=== PATIENT | male | born 1950 | race Caucasian/White ===

== ENCOUNTER → 2018-01-27 | Outpatient (CLI) | payer MEDICARE, OTHER ==
[~2018-01-27] MED LIST: ACET250T19 PO; ASPI-1471 PO; CIPR-212 PO; FAM20 PO; IBU200 PO; IBU800 PO; LEVO137T23 PO; LEVO150T72 PO; LOR5/325 PO; MULT-1335 PO; NAPR-1043 PO
[2018-01-27 08:02] LABS: PLATELET COUNT, AUTOMATED 163 K/uL (150-450)
[2018-01-27 08:45] LABS: LDL CHOLESTEROL 118 mg/dl
== END ==
LOC: LAB 07:44
PROVIDERS: ATTEND Internal Medicine
DX: E03.9 Hypothyroidism, unspecified (principal)
CPT/HCPCS: 36415; 81001; 84439; 84443; 85025; G0103; 82040; 82247; 82310; 82374; 82435; 82465; 82565; 82947; 83718; 84075; 84132; 84153; 84155; 84295; 84450; 84460; 84478; 84520

== ENCOUNTER → 2018-01-28 | Outpatient (CLI) | payer MEDICARE, OTHER ==
--- NOTE | 2018-01-28 08:29 | RADIOLOGY IMAGING REPORT ---
FACILITY: [facility] [place] PATIENT NAME: Zhou Sosa : 1950 MR: [id number] V: [id number] EXAM DATE: ORDERING PHYSICIAN: MARK ZHOU TECHNOLOGIST: Location: [facility] Patient: Zhou Sosa : 1950 Visit/Account:[id number] Date of Sevice: 01/28/2018 EXAMINATION: Aorta ultrasound with duplex Doppler evaluation HISTORY: Abdominal aortic aneurysm, iliac artery aneurysm COMPARISON: December 07, 2007 FINDINGS: Suprarenal abdominal aorta: 2.2 x 1.9 cm AP and transverse dimensions Superior infrarenal abdominal aorta: 2.4 x 1.8 cm AP and transverse dimensions Mid infrarenal abdominal aorta: 1.8 x 2.5 cm AP and transverse dimensions Inferior infrarenal abdominal aorta: Two x 1.9 cm AP and transverse dimensions Proximal common iliac artery diameter: Left 12 x 20 mm; right 16 x 22 mm Aorta wall: Negative. Aorta and proximal common iliac artery are patent by duplex Doppler ultrasound. Incidentally noted are three left renal cysts largest measuring 9.8 cm in diameter. Also incidentally noted are two round nonshadowing echogenic foci within the gallbladder best seen on image 12 of 47. The largest measures 4 mm in diameter. 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 The right common iliac artery measures 16 x 22 mm Multiple left renal cysts 2. Round nonshadowing echogenic foci are seen within the gallbladder which may represent polyps versus nonshadowing stones Report Dictated By: Melanie Guzman MD at 01/28/2018 8:16 AM Report E-Signed By: Melanie Guzman MD at 01/28/2018 8:25 AM WSN:[email or web address]
== END ==
LOC: US 01:55
PROVIDERS: ATTEND Internal Medicine
DX: I72.3 Aneurysm of iliac artery (principal); N28.1 Cyst of kidney, acquired
CPT/HCPCS: 93978

== ENCOUNTER → 2018-05-05 | Outpatient (CLI) | payer MEDICARE, OTHER | LOC: LAB 08:40 | PROVIDERS: ATTEND Internal Medicine | DX: E03.9 Hypothyroidism, unspecified (principal); Z85.850 Personal history of malignant neoplasm of thyroid | CPT/HCPCS: 36415; 84439; 84443 ==

== ENCOUNTER → 2018-05-29 | Outpatient (CLI) | payer MEDICARE, OTHER ==
--- NOTE | 2018-05-29 14:36 | RADIOLOGY IMAGING REPORT ---
FACILITY: [facility] PATIENT NAME: Zhou Sosa : 1950 MR: [id number] V: [id number] EXAM DATE: ORDERING PHYSICIAN: BRINA BARTLETT TECHNOLOGIST: Location: [facility] [place] Patient: Zhou Sosa : 1950 Visit/Account:[id number] Date of Sevice: 05/29/2018 GALLBLADDER HISTORY: Gallbladder polyp seen on prior ultrasound COMPARISON: Aortic ultrasound January 28, 2018 FINDINGS: Gallbladder: There are multiple nonshadowing echogenic foci adherent to the gallbladder wall consiste nt with polyps. The largest measures 5 mm in diameter. Liver: There is a 2.6 cm cyst in the right lobe and a 2 cm cyst in the left lobe the liver contour is slightly lobulated Common duct: Normal, 3.3 mm diameter. Pancreas: Partially obscured by bowel, visualized aspects unremarkable. Right kidney: There are two right renal cysts one measuring 1 cm in diameter one measuring 9 mm in di ameter Upper abdominal aorta and IVC: Patent. Ascites: None visualized. IMPRESSION: Multiple gallbladder polyps, largest measuring 5 mm. There are two hepatic cysts, largest 2.6 cm Two right renal cysts, largest 1 cm Report Dictated By: Melanie Guzman MD at 05/29/2018 2:22 PM Report E-Signed By: Melanie Guzman MD at 05/29/2018 2:32 PM WSN:[email or web address]
== END ==
LOC: US 03:26
PROVIDERS: ATTEND Surgery
DX: K82.4 Cholesterolosis of gallbladder (principal); K76.89 Other specified diseases of liver; N28.1 Cyst of kidney, acquired
CPT/HCPCS: 76705

== ENCOUNTER → 2018-12-23 | Outpatient (CLI) | payer MEDICARE, OTHER ==
--- NOTE | 2018-12-23 11:08 | RADIOLOGY IMAGING REPORT ---
FACILITY: [facility] PATIENT NAME: Zhou Sosa : 1950 MR: [id number] V: [id number] EXAM DATE: ORDERING PHYSICIAN: BRINA BARTLETT TECHNOLOGIST: Location: [facility] Patient: Zhou Sosa : 1950 Visit/Account:[id number] Date of Sevice: 12/23/2018 GALLBLADDER HISTORY: gallbladder polyps COMPARISON: May 29, 2018 FINDINGS: Gallbladder: There are multiple nonmobile echogenic foci adherent to the gallbladder wall. At least four polyps are identified the largest measuring 8.7 mm. Liver: There multiple hepatic cysts ranging in size up to 2.1 cm. Also noted is a well-circumscribed 1.3 cm echogenic mass along the dome of the liver which was not imaged previously Common duct: Normal, 2.3 mm diameter. Pancreas: Partially obscured by bowel, visualized aspects unremarkable. Right kidney: The right kidney measures 10.1 cm in length with no evidence of hydronephrosis Upper abdominal aorta and IVC: Patent. Ascites: None visualized. IMPRESSION: There multiple gallbladder polyps measuring up to 8.7 mm in diameter Multiple hepatic cysts Well-circumscribed 1.3 cm echogenic mass along the dome of the liver which was not imaged on the prio r study. This may represent hemangioma although other solid masses are included in the differential diagnosis. If further diagnostic imaging is desired either CT or MR of the liver with and without co ntrast utilizing the pancreatic mass protocol would be helpful Report Dictated By: Melanie Guzman MD at 12/23/2018 10:38 AM Report E-Signed By: Melanie Guzman MD at 12/23/2018 11:03 AM WSN:[email or web address]
== END ==
LOC: US 01:32
PROVIDERS: ATTEND Surgery
DX: K82.4 Cholesterolosis of gallbladder (principal); K76.89 Other specified diseases of liver
CPT/HCPCS: 76705

== ENCOUNTER → 2019-01-07 | Outpatient (CLI) | payer MEDICARE, OTHER ==
[~2019-01-07] MED LIST changes: +IOPAMIDOL 76% 100 ML INFUS BTL 100 ML ONE
--- NOTE | 2019-01-07 11:08 | RADIOLOGY IMAGING REPORT ---
FACILITY: PATIENT NAME: Zhou Sosa : 1950 MR: [id number] V: [id number] EXAM DATE: ORDERING PHYSICIAN: BRINA BARTLETT TECHNOLOGIST: Location: [facility] [place] Patient: Zhou Sosa : 1950 Visit/Account:[id number] Date of Sevice: 01/07/[address] of abdomen with contrast CLINICAL INFORMATION: Liver lesion TECHNIQUE: Axial CT images were obtained through the abdomen following nonionic iodinated intraveno us contrast. Imaging was performed in the arterial phase, portal venous phase and delayed phase. Re formatted coronal and sagittal images were also obtained. Dose Lowering Technique One of the following dose optimization techniques was utilized in the performance of this exam: Autom ated exposure control; adjustment of the mA and/or kV according to the patient's size; or use of an i terative reconstruction technique. Specific details can be referenced in the facility's radiology C T exam operational policy. CONTRAST: 75ml of IV Isovue-370 contrast. COMPARISON: Gallbladder ultrasound December 23, 2018. FINDINGS: Lower lung porter: Limited views lower lung field are unremarkable. Liver: Numerous hepatic cysts are present ranging in size up to 2.4 cm in diameter. In the lateral s egment of the left lobe of the liver there is a 1.4 x 1.2 cm arterially enhancing mass which becomes homogeneous on the portal venous phase images and follows blood pool on the delayed images. This may represent a hemangioma Biliary: Gallbladder appears unremarkable as well as the intra and extra hepatic biliary system. Pancreas: Normal appearance. Spleen: Normal appearance. Adrenal glands: Unremarkable. Kidneys / retroperitoneum: There bilateral renal cysts. The largest on the left measures 10.7 cm in diameter Bowel / peritoneum / mesenteries: The visualized small and large bowel appear unremarkable. Vessels: Mild atherosclerotic calcification seen throughout a nonaneurysmal abdominal aorta. There a ppears be mild aneurysmal dilatation of the right common iliac artery which is incompletely imaged an d measures 1.7 cm in diameter Musculoskeletal / Body wall: No acute or aggressive osseous abnormality. Lymph node assessment: No pathologic adenopathy identified. There is a small umbilical hernia containing fat IMPRESSION: 1. Numerous hepatic cysts In the lateral segment of the left lobe of the liver there is a 1.4 x 1.2 cm arterially enhancing mas s which becomes homogeneous on the portal venous phase images and follows blood pool on the delayed i mages. This may represent a benign hemangioma. A six-month follow-up liver ultrasound is recommende d 2. 3. Report Dictated By: Melanie Guzman MD at 01/07/2019 10:08 AM Report E-Signed By: Melanie Guzman MD at 01/07/2019 11:01 AM WSN:[email or web address]
--- NOTE | 2019-01-07 12:20 | RADIOLOGY IMAGING REPORT ---
FACILITY: [facility] PATIENT NAME: Zhou Sosa : 1950 MR: [id number] V: [id number] EXAM DATE: ORDERING PHYSICIAN: BRINA BARTLETT TECHNOLOGIST: Location: [facility] Patient: Zhou Sosa : 1950 Visit/Account:[id number] Date of Sevice: 01/07/[address] of abdomen with contrast CLINICAL INFORMATION: Liver lesion TECHNIQUE: Axial CT images were obtained through the abdomen following nonionic iodinated intraveno us contrast. Imaging was performed in the arterial phase, portal venous phase and delayed phase. Re formatted coronal and sagittal images were also obtained. Dose Lowering Technique One of the following dose optimization techniques was utilized in the performance of this exam: Autom ated exposure control; adjustment of the mA and/or kV according to the patient's size; or use of an i terative reconstruction technique. Specific details can be referenced in the facility's radiology C T exam operational policy. CONTRAST: 75ml of IV Isovue-370 contrast. COMPARISON: Gallbladder ultrasound December 23, 2018. FINDINGS: Lower lung porter: Limited views lower lung field are unremarkable. Liver: Numerous hepatic cysts are present ranging in size up to 2.4 cm in diameter. In the lateral s egment of the left lobe of the liver there is a 1.4 x 1.2 cm arterially enhancing mass which becomes homogeneous on the portal venous phase images and follows blood pool on the delayed images. This may represent a hemangioma Biliary: Gallbladder appears unremarkable as well as the intra and extra hepatic biliary system. Pancreas: Normal appearance. Spleen: Normal appearance. Adrenal glands: Unremarkable. Kidneys / retroperitoneum: There bilateral renal cysts. The largest on the left measures 10.7 cm in diameter Bowel / peritoneum / mesenteries: The visualized small and large bowel appear unremarkable. Vessels: Mild atherosclerotic calcification seen throughout a nonaneurysmal abdominal aorta. There a ppears be mild aneurysmal dilatation of the right common iliac artery which is incompletely imaged an d measures 1.7 cm in diameter Musculoskeletal / Body wall: No acute or aggressive osseous abnormality. Lymph node assessment: No pathologic adenopathy identified. There is a small umbilical hernia containing fat IMPRESSION: 1. Numerous hepatic cysts In the lateral segment of the left lobe of the liver there is a 1.4 x 1.2 cm arterially enhancing mas s which becomes homogeneous on the portal venous phase images and follows blood pool on the delayed i mages. This may represent a benign hemangioma. A six-month follow-up liver ultrasound is recommende d 2. 3. Report Dictated By: Melanie Guzman MD at 01/07/2019 10:08 AM Report E-Signed By: Melanie Guzman MD at 01/07/2019 11:01 AM WSN:[email or web address]
== END ==
LOC: CT 00:30
PROVIDERS: ATTEND Surgery
DX: Z01.812 Encounter for preprocedural laboratory examination (principal); K76.89 Other specified diseases of liver
CPT/HCPCS: 36415; 74170; 82565; Q9967

== ENCOUNTER 2019-02-04 01:29 | Day surgery (SDC) | payer MEDICARE, OTHER ==
[2019-02-04] VITALS (9 sets, daily range): BP systolic 122–150; BP diastolic 69–90
[~2019-02-04] VITALS: Ht 177.8 cm; Wt 76.7 kg
[~2019-02-04 01:29] MED LIST changes: -IOPAMIDOL 76% 100 ML INFUS BTL 100 ML ONE
[2019-02-04] MEDS ORDERED: ROPIVACAINE 0.5% 20 ML VIAL ONE (08:03)
[2019-02-04] MEDS ORDERED: SUGAMMADEX SOD 200 MG/2 ML SDV ONE (08:09)
[2019-02-04] MEDS ORDERED: ROCURONIUM BR 10 MG/ML 5 ML SY 5 ML ONE ×2 (08:09→10:38)
[2019-02-04] MEDS ORDERED: fentaNYL CITR 250 MCG/5 ML AMP ONE (08:09)
[2019-02-04] MEDS ORDERED: PROPOFOL EMUL(*) 10MG/ML 20 ML 20 ML ONE (08:09)
[2019-02-04] MEDS ORDERED: DEXAMETHASONE SOD 4 MG/ML VIAL ONE (08:09)
[2019-02-04] MEDS ORDERED: LIDOCAINE MPF 1% 5 ML VIAL ONE (08:09)
[2019-02-04] MEDS ORDERED: ONDANSETRON 4 MG/2 ML VIAL ONE (08:09)
[2019-02-04] MEDS ORDERED: KETAMINE HCL-NS 50 MG/5 ML SYR ONE (08:12)
[2019-02-04] MEDS ORDERED: PREGABALIN 150 MG CAPSULE PO ONE (09:10)
[2019-02-04] MEDS ORDERED: FAMOTIDINE 20 MG TAB PO ONE (09:10)
[2019-02-04] MEDS ORDERED: INDOCYANINE GREEN 25 MG VIAL IVP ONE (09:10)
[2019-02-04] MEDS ORDERED: NORMOSOL R SOLN(*) 1000 ML BAG 1,000 ML IV PRN (09:10)
[2019-02-04] MEDS ORDERED: ACETAMINOPHEN 500 MG TAB PO ONE (09:10)
[2019-02-04] MEDS ORDERED: LEVOFLOXACIN/D5W*500 MG/100 ML 100 ML IVPB ONE (09:10)
[2019-02-04] MEDS ORDERED: metroNIDAZOLE* 500MG/100ML BAG 100 ML IVPB ONE (09:10)
[2019-02-04] MEDS ORDERED: LIDOCAINE/SOD BICARB 8.4% SYR ID ONE (09:10)
[2019-02-04] MEDS ORDERED: MIDAZOLAM 2 MG/2 ML VIAL IVP PRN (09:10)
[2019-02-04 09:23] LABS: PLATELET COUNT, AUTOMATED 187 K/uL (150-450)
--- NOTE | 2019-02-04 10:56 | EKG ---
[place] [facility] [place] NAME: DEMARIO FRANCOIS : [id number] MR: [id number] V: [id number] EXAM DATE: ORDERING PHYSICIAN: KVNG COE TECHNOLOGIST: SETH Test Reason : PRE OP Blood Pressure : / mmHG Vent. Rate : 047 BPM Atrial Rate : 047 BPM P-R Int : 248 ms QRS Dur : 138 ms QT Int : 494 ms P-R-T Axes : 065 -66 028 degrees QTc Int : 437 ms Marked sinus bradycardia with 1st degree AV block Right bundle branch block Left anterior fascicular block Bifascicular block Left ventricular hypertrophy with QRS widening Cannot rule out Septal infarct , age undetermined Abnormal ECG When compared with ECG of 29-JUN-2012 12:10, No significant change was found Confirmed by BRINA JOHNSON ([id number]) on 02/04/2019 6:34:40 PM Referred By: DHRUV Confirmed By:BRINA JOHNSON
[2019-02-04] MEDS ORDERED: TRAM-420 PO (11:54)
[2019-02-04] MEDS ORDERED: DOCU100C56 PO (11:54)
--- NOTE | 2019-02-04 11:57 | Short(Outpt) Discharge Summary ---
Discharge Summary Reason for Hosp/Final Diag: (1) Gallbladder polyp Status: Chronic Hospital Course & Plan: Robotic cholecystectomy completed without problems. Departure Discharge to: Home, Self Care Discharge Instructions Home Meds Active Scripts Docusate Sodium (DOC-Q-LACE) 100 Mg Capsule, 1 CAP PO BID, #30 CAPSULE 0 Refills Prov:BRINA BARTLETT MD 02/04/19 Tramadol Hcl (TRAMADOL HCL) 50 Mg Tablet, 1 TAB PO Q4H PRN for PAIN, #20 TAB 0 Refills Prov:BRINA BARTLETT MD 02/04/19 Levothyroxine Sodium (LEVOTHYROXINE SODIUM) 137 Mcg Tablet, 137 MCG PO QDAY, #90 TAB 3 Refills Prov:MARK ZHOU MD 05/05/18 Reported Medications Aspirin (ASPIR 81) 81 Mg Tablet., 1 TAB PO QDAY, TAB 04/28/17 Follow up Referrals: General Surgery - 02/17/19 @ Surgery, General with BRINA BARTLETT MD You have a follow up appointment scheduled with Dr. Bartlett on 02/17/19, at 2:00pm. Diet: Regular Activity: As Tolerated Special Instructions: You may remove the white surgical dressings on 02/06/19, then you can shower. After showering, leave the incisions open to air but leave the steristrips in place until they fall off on their own. Do not immerse the incisions for 2 weeks. Avoid any activity that involves straining or lifting more than 10 pounds for 2 weeks after surgery. BRINA BARTLETT MD Feb 04, 2019 11:57
--- NOTE | 2019-02-04 12:03 | Post Operative Progress Note ---
Post Operative Progress Note Date: Feb 04, 2019 Time: 11:53 Surgeon: Andreina Dictation number: [id number] Anesthesia: GETA by Dr. Crowell Pre-Op Diagnosis: Gallbladder polyps Post-Op Diagnosis: LENCHO Findings: C/W dx Procedure(s): Robotic cholecystectomy Specimen Removed:(May be N/A): GB and contents Complications: None Fluids: See anesthesia record Estimated Blood Loss: Minimal Date OP Note Dictated: Feb 04, 2019 Time OP Note Dictated: 11:54 BRINA BARTLETT MD Feb 04, 2019 12:03
[2019-02-04] MEDS ORDERED: fentaNYL CITR 100 MCG/2 ML AMP ONE (12:46)
[2019-02-04] MEDS ORDERED: traMADol 50 MG TAB ONE (13:39)
--- NOTE | 2019-02-04 22:15 | OPERATIVE REPORT 1 ---
EVENT DATE: February 04, 2019 SURGEON: Alexei Hdz MD ANESTHESIOLOGIST: Wilfredo Driver MD ANESTHESIA: General endotracheal anesthesia. PREOPERATIVE DIAGNOSIS Growing gallbladder polyps. POSTOPERATIVE DIAGNOSIS Growing gallbladder polyps. PROCEDURE PERFORMED Robotic cholecystectomy. COMPLICATIONS None. CONDITION Stable. BLOOD LOSS Minimal. INDICATIONS This is a 69-year-old gentleman who was referred to me a year ago with an ultrasound which revealed some gallbladder polyps. He was actually doing the ultrasound for a different reason, and these showed up just incidentally. He has had no gallbladder symptoms. We repeated his ultrasound a year later, and they were getting bigger. I recommended a cholecystectomy, and he has provided consent for this procedure. DESCRIPTION OF PROCEDURE The patient was brought to the operating room and placed supine on the operating table. General endotracheal anesthesia was administered. His abdomen was prepped and draped in a sterile fashion. Timeout was completed. I injected the infraumbilical skin with 0.5% ropivacaine plain. I made a curvilinear smiley face incision in the inferior umbilical rim, dissected through the dermis and subcutaneous fat, and identified the midline fascia. I made a vertical incision in the midline fascia, grasped the fascial edges with Maris clamps, and then penetrated the peritoneal cavity with my finger. I placed two interrupted 0 Vicryl sutures transversely through the vertical fascial defect and inserted a 12 mm Sofia robotic-type port through this wound and secured it in place with suture. I insufflated the abdomen to a pressure of 15 mmHg and then inserted the robotic camera in through this port. I then placed an 8 mm robotic port in the right mid abdomen and two 8 mm robotic ports in the left side of the abdomen, one in the anterior axillary line and subcostal space, and then one about half way between the umbilical port and the left upper quadrant port. I then placed the patient in reverse Trendelenburg and planed him towards the left. I then brought in the robot, docked and targeted the robot, inserted the instruments, scrubbed out, and went to the console. There were some adhesions of the greater omentum actually to the peritoneum underlying the diaphragm, and I did take these down with hook electrocautery in a hemostatic fashion. This allowed me then to pull the omentum down and reveal the gallbladder because the omentum had been draped over the gallbladder and liver. I then grasped the fundus of the gallbladder and retracted it over to the patient's right shoulder. There was some fat that was adherent to the gallbladder, which I took down with hook electrocautery. I then grabbed the infundibulum of the gallbladder and retracted it towards the patient's right hip. I then used the hook electrocautery to divide the peritoneum over the infundibulum and up both the medial and lateral aspects of the gallbladder. I stripped this down and then dissected around the cystic duct, which was easily identified. Once the cystic duct was cleaned off circumferentially, I then clipped it with a clip at the infundibulum-cystic duct junction with three clips just distal to this and then divided the cystic duct. The cystic artery was easily identified as it tracked cephalad to the cystic duct and then up the left side of the gallbladder. I cleaned it off and clipped it proximally and distally and divided it between clips. I then divided the posterior attachment of the gallbladder, it from the gallbladder fossa. I then placed the gallbladder in a surgical specimen retrieval bag and removed it from the abdomen through the umbilical port site. I then removed all the robotic instruments and undocked the robot. I scrubbed back in and irrigated and dried the right upper quadrant. There was a little bit of raw liver that was oozing, which I controlled with electrocautery. I then placed Ligia in the gallbladder fossa. I made sure I removed all irrigation fluid. I then removed all the instruments and ports after desufflating the abdomen and then closed the midline fascia with another [id number] 0 Vicryl suture and tied all three of these down with good reapproximation of the fascial edges. I then closed the skin at each incision with 4-0 Monocryl subcuticular suture. Skin was cleaned and dried, and Steri- Strips were applied, followed by sterile surgical dressings. The patient was awakened, extubated in the operating room, and transported to the recovery room in stable condition having tolerated the procedure without any apparent problems. SUSHMA
== END 2019-02-04 13:10 | disposition home or self-care (01) ==
LOC: OR 01:29
PROVIDERS: ATTEND Surgery
DX: K82.4 Cholesterolosis of gallbladder (principal); I44.0 Atrioventricular block, first degree; I45.2 Bifascicular block; G47.33 Obstructive sleep apnea (adult) (pediatric); K76.9 Liver disease, unspecified; K76.89 Other specified diseases of liver
CPT/HCPCS: 47562; 85025; 85610; 88304; 93005; A9270; J1100; J1956; J2001; J2405; J2704; J2795; J3010; J3490; S2900; 82310; 82374; 82435; 82565; 82947; 84132; 84295; 84520